=== PATIENT | female | born 1990 | race African-American/Black ===

== ENCOUNTER 2019-01-18 14:59 | Inpatient (IN) | payer OTHER ==
[2019-01-18 17:03] VITALS: BMI 29.1
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
[2019-01-18] MEDS ORDERED: P-EPHED 60MG/TRIPROLIDI 2.5MG TABLET PO PRN (20:26)
[2019-01-18] MEDS ORDERED: MAGNESIUM CITRATE 300 ML BOTTLE PO PRN (20:26)
[2019-01-18] MEDS ORDERED: LOPERAMIDE HCL 2 MG CAPSULE PO PRN (20:26)
[2019-01-18] MEDS ORDERED: MAG HYDROX/AL HYDROX/SIMETH 30 ML UNIT-DOSE CUP PO PRN (20:26)
[2019-01-18] MEDS ORDERED: ACETAMINOPHEN 325 MG TABLET (FP) PO PRN (20:26)
[2019-01-18] MEDS ORDERED: hydrOXYzine PAMOATE 50 MG CAPSULE (FP) PO PRN (20:26)
[2019-01-18] MEDS ORDERED: guaiFENesin/D-METHORPHAN HB 10 ML UNIT-DOSE CUPS PO PRN (20:26)
[2019-01-18] MEDS ORDERED: IBUPROFEN 400 MG TABLET (FP) PO PRN (20:26)
[2019-01-18] MEDS ORDERED: chlordiazePOXIDE HCL 25 MG CAPSULE PO PRN (20:26)
[2019-01-18] MEDS ORDERED: MAGNESIUM HYDROX 2400MG/30ML ORAL SUSPENSION 30 ML CUP PO PRN (20:26)
[2019-01-18] MEDS ORDERED: MENTHOL/PHENOL 1 EACH UD MM PRN (20:26)
[2019-01-18] MEDS: THIAMINE HCL 100 MG TABLET (FP) PO SCH (21:37)
[2019-01-18] MEDS: MELATONIN 5 MG TABLETS PO PRN (21:37)
[2019-01-18] MEDS: chlordiazePOXIDE HCL 25 MG CAPSULE PO SCH (22:01)
[2019-01-18 22:58] LABS: URINE APPEARANCE TURBID; URINE BILIRUBIN NEGATIVE (<2.0 mg/dL); URINE COLOR YELLOW; URINE GLUCOSE (UA) NEGATIVE (NEGATIVE); URINE KETONE 1+ (NEGATIVE); URINE LEUK ESTERASE TRACE (NEGATIVE); URINE NITRITE NEGATIVE (NEGATIVE); URINE PROTEIN 2+ (NEGATIVE); URINE UROBILINOGEN 4.0 E.U/dl mg/dL (0.2-1.0)
[2019-01-18 23:04] LABS: EPI CELLS FEW /HPF (FEW); URINE MUCUS RARE
[2019-01-19] MEDS: chlordiazePOXIDE HCL 25 MG CAPSULE PO SCH ×4 (06:56→22:26)
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
--- NOTE | 2019-01-19 10:03 | PN ---
S CIWA - CIWA Score Nausea/Vomitin-No Nausea/No Vomiting Muscle Tremors: 4-Moderate,w/Arms Extend Anxiety: 2 Agitation: 3 Paroxysmal Sweats: 3 Orientation: 0-Oriented Tacttile Disturbances: 0-None Auditory Disturbances: 0-None Visual Disturbances: 0-None Headache: 0-None Present CIWA-Ar Total Score: 12 S Progress Note (SOAP) Subjective: sweats shakes interrupted sleep body aches tired irritable Objective: 01/19/19 10:01 Vital Signs Temperature 98.2 F 01/19/19 09:36 Pulse Rate 62 01/19/19 09:36 Respiratory Rate 18 01/19/19 09:36 Blood Pressure 114/74 01/19/19 09:36 O2 Sat by Pulse Oximetry (%) Laboratory Tests 01/18/19 22:45 Urine Color Yellow Urine Appearance Turbid Urine pH 5.0 Ur Specific [place] 1.034 Urine Protein 2+ H Urine Glucose (UA) Negative Urine Ketones 1+ H Urine Blood 2+ H Urine Nitrite Negative Urine Bilirubin Negative Urine Urobilinogen 4.0 e.u/dl H Ur Leukocyte Esterase Trace Urine WBC (Auto) 27 Urine RBC (Auto) 2 Ur Epithelial Cells Few Urine Mucus Rare rest of labs pending aaox3 ambulating no acute distress repeat u/a Assessment: 01/19/19 10:02 withdrawal sx Plan: continue detox increase fluids labs pending repeat u/a
[2019-01-19 10:45] LABS: ALBUMIN 3.3 g/dl (3.4-5.0); ALK PHOS 87 U/L (45-117); ANION GAP 8 MMOL/L (8-16); BILIRUBIN,TOTAL 1.4 mg/dL (0.2-1); BLOOD UREA NITROGEN 11 mg/dL (7-18); CALCIUM 8.7 mg/dL (8.5-10.1); CHLORIDE 108 mmol/L (98-107); CO2 25 mmol/L (21-32); GLUCOSE,RANDOM 76 mg/dL (74-106); POTASSIUM 3.9 mmol/L (3.5-5.1); SGOT/AST 25 U/L (15-37); SGPT/ALT 30 U/L (13-61); SODIUM 140 mmol/L (136-145); TOT PROT 6.3 g/dl (6.4-8.2)
[2019-01-19 10:56] LABS: HEMATOCRIT 39.2 % (32.4-45.2); HEMOGLOBIN 13.3 GM/dL (10.7-15.3); MCH 32.5 pg (25.7-33.7); MEAN CELL VOLUME 95.6 fl (80-96); MEAN PLT VOLUME 9.2 fl (7.5-11.1); PLATELET COUNT 252 K/MM3 (134-434); RDW 14.5 % (11.6-15.6); WHITE BLOOD COUNT 3.5 K/mm3 (4.0-10.0)
[2019-01-19] MEDS: NICOTINE 14 MG/24 HOURS TOPICAL PATCH TD SCH (11:33)
[2019-01-19] MEDS: PRENATAL VITAMINS W/ FOLIC ACID TABLET (FP) PO SCH (11:33)
[2019-01-19] MEDS: risperiDONE 1 MG TABLET (FP) PO SCH ×2 (12:24→22:26)
[2019-01-19] MEDS: ESCITALOPRAM OXALATE 20 MG TABLET (FP) PO SCH (12:24)
--- NOTE | 2019-01-19 14:01 | EKG ---
Test Reason : Blood Pressure : / mmHG Vent. Rate : 072 BPM Atrial Rate : 072 BPM P-R Int : 188 ms QRS Dur : 080 ms QT Int : 410 ms P-R-T Axes : 028 070 049 degrees QTc Int : 448 ms NORMAL SINUS RHYTHM NORMAL ECG NO PREVIOUS ECGS AVAILABLE Confirmed by MD Nick, Ghassan ([id number]) on 01/19/2019 2:01:11 PM Referred By: Confirmed By:Ghassan Romero MD
[2019-01-19] MEDS: THIAMINE HCL 100 MG TABLET (FP) PO SCH (22:26)
[2019-01-20] MEDS: chlordiazePOXIDE HCL 25 MG CAPSULE PO SCH ×3 (07:24→17:37)
[2019-01-20] MEDS: NICOTINE POLACRILEX 2 MG GUM BC PRN ×2 (11:03→22:32)
[2019-01-20] MEDS: PRENATAL VITAMINS W/ FOLIC ACID TABLET (FP) PO SCH (11:03)
[2019-01-20] MEDS: NICOTINE 14 MG/24 HOURS TOPICAL PATCH TD SCH (11:03)
[2019-01-20] MEDS: risperiDONE 1 MG TABLET (FP) PO SCH ×2 (11:03→22:12)
[2019-01-20] MEDS: ESCITALOPRAM OXALATE 20 MG TABLET (FP) PO SCH (11:03)
--- NOTE | 2019-01-20 13:29 | PN ---
[facility] CIWA - CIWA Score Nausea/Vomitin-No Nausea/No Vomiting Muscle Tremors: 3 Anxiety: 2 Agitation: 2 Paroxysmal Sweats: 3 Orientation: 0-Oriented Tacttile Disturbances: 0-None Auditory Disturbances: 0-None Visual Disturbances: 0-None Headache: 0-None Present CIWA-Ar Total Score: 10 S Progress Note (SOAP) Subjective: irritable sweats tired Objective: 01/20/19 13:32 Vital Signs Temperature 98.1 F 01/20/19 09:31 Pulse Rate 65 01/20/19 09:31 Respiratory Rate 20 01/20/19 09:31 Blood Pressure 116/75 01/20/19 09:31 O2 Sat by Pulse Oximetry (%) Laboratory Tests 01/18/19 01/19/19 01/19/19 22:45 07:00 07:00 WBC 3.5 L RBC 4.10 Hgb 13.3 Hct 39.2 MCV 95.6 MCH 32.5 MCHC 34.0 RDW 14.5 Plt Count 252 MPV 9.2 Sodium Potassium Chloride Carbon Dioxide Anion Gap BUN Creatinine Creat Clearance w eGFR Random Glucose Calcium Total Bilirubin AST ALT Alkaline Phosphatase Total Protein Albumin Urine Color Yellow Urine Appearance Turbid Urine pH 5.0 Ur Specific [place] 1.034 Urine Protein 2+ H Urine Glucose (UA) Negative Urine Ketones 1+ H Urine Blood 2+ H Urine Nitrite Negative Urine Bilirubin Negative Urine Urobilinogen 4.0 e.u/dl H Ur Leukocyte Esterase Trace Urine WBC (Auto) 27 Urine RBC (Auto) 2 Ur Epithelial Cells Few Urine Mucus Rare RPR Titer HIV 1&2 Antibody Screen Negative HIV P24 Antigen Negative 01/19/19 01/19/19 07:00 07:00 WBC RBC Hgb Hct MCV MCH MCHC RDW Plt Count MPV Sodium 140 Potassium 3.9 Chloride 108 H Carbon Dioxide 25 Anion Gap 8 BUN 11 Creatinine 1.0 Creat Clearance w eGFR > 60 Random Glucose 76 Calcium 8.7 Total Bilirubin 1.4 H AST 25 ALT 30 Alkaline Phosphatase 87 Total Protein 6.3 L Albumin 3.3 L Urine Color Urine Appearance Urine pH Ur Specific [place] Urine Protein Urine Glucose (UA) Urine Ketones Urine Blood Urine Nitrite Urine Bilirubin Urine Urobilinogen Ur Leukocyte Esterase Urine WBC (Auto) Urine RBC (Auto) Ur Epithelial Cells Urine Mucus RPR Titer Nonreactive HIV 1&2 Antibody Screen HIV P24 Antigen repeated u/a pending aaox3 ambulating no acute distress Assessment: 01/20/19 13:33 withdrawal sx Plan: continue detox increase fluids labs pending
[2019-01-20 15:26] LABS: URINE APPEARANCE CLOUDY; URINE BILIRUBIN NEGATIVE (<2.0 mg/dL); URINE COLOR YELLOW; URINE GLUCOSE (UA) NEGATIVE (NEGATIVE); URINE KETONE NEGATIVE (NEGATIVE); URINE LEUK ESTERASE 3+ (NEGATIVE); URINE NITRITE NEGATIVE (NEGATIVE); URINE PROTEIN NEGATIVE (NEGATIVE); URINE UROBILINOGEN NEGATIVE mg/dL (0.2-1.0)
[2019-01-20 15:30] LABS: EPI CELLS MODERATE /HPF (FEW); URINE MUCUS FEW; YEAST RARE
[2019-01-20] MEDS: THIAMINE HCL 100 MG TABLET (FP) PO SCH (22:11)
[2019-01-20] MEDS: chlordiazePOXIDE 5 MG CAPSULE PO SCH (22:11)
[2019-01-20] MEDS: MELATONIN 5 MG TABLETS PO PRN (22:11)
[2019-01-21] MEDS: chlordiazePOXIDE 5 MG CAPSULE PO SCH ×2 (07:19→11:00)
[2019-01-21 10:11] VITALS: BP 121/68; PULSE 72; TEMP 98.1
--- NOTE | 2019-01-21 10:32 | PN ---
S Progress Note Note: pt is refusing to continue to take her detox medication pt is not having any s/ s of withdrawals. d/c today.
--- NOTE | 2019-01-21 10:37 | DS ---
[facility] Detox Discharge Summary Admission Date: 01/18/19 Discharge Date: 01/21/19 - History Present History: Alcohol Dependence, Cocaine Dependence - Physical Exam Results Vital Signs: Vital Signs Temperature 98.1 F 01/21/19 10:00 Pulse Rate 72 01/21/19 10:00 Respiratory Rate 16 01/21/19 10:00 Blood Pressure 121/68 01/21/19 10:00 O2 Sat by Pulse Oximetry (%) - Treatment Hospital Course: Detox Protocol Followed, Detoxed Safely, Responded well, Discharged Condition Good, Rehab Referral Accepted - Medication Discharge Medications: Ambulatory Orders Escitalopram Oxalate [Lexapro -] 20 mg PO DAILY 01/18/19 Risperidone [Risperdal] 1 mg PO BID 01/18/19 - AMA Did Patient Leave Against Medical Advice: No (going home)
[2019-01-21] MEDS: risperiDONE 1 MG TABLET (FP) PO SCH (11:00)
[2019-01-21] MEDS: PRENATAL VITAMINS W/ FOLIC ACID TABLET (FP) PO SCH (11:00)
[2019-01-21] MEDS: NICOTINE 14 MG/24 HOURS TOPICAL PATCH TD SCH (11:00)
[2019-01-21] MEDS: ESCITALOPRAM OXALATE 20 MG TABLET (FP) PO SCH (11:00)
[2019-01-21] MEDS ORDERED: chlordiazePOXIDE HCL 10 MG CAPSULE PO SCH (23:00)
== END 2019-01-21 10:46 | disposition home or self-care (01) | DRG 774 ==
LOC: YASAS 14:59 → Y6N 20:58
PROVIDERS: ADMIT Surgery; ATTEND Surgery
PROC: HZ2ZZZZ Detoxification Services for Substance Abuse Treatment (ICD-10-PCS; principal; 2019-01-18)
DX: F10.230 Alcohol dependence with withdrawal, uncomplicated (principal); F14.20 Cocaine dependence, uncomplicated; F17.210 Nicotine dependence, cigarettes, uncomplicated; F25.9 Schizoaffective disorder, unspecified; F19.24 Other psychoactive substance dependence with psychoactive substance-induced mood disorder; F19.282 Other psychoactive substance dependence with psychoactive substance-induced sleep disorder; F31.9 Bipolar disorder, unspecified; F43.10 Post-traumatic stress disorder, unspecified; D25.9 Leiomyoma of uterus, unspecified; Z20.2 Contact with and (suspected) exposure to infections with a predominantly sexual mode of transmission; Z91.5 Personal history of self-harm
CPT/HCPCS: 36415; 80053; 81003; 81015; 85027; 86593; 87389; 93005; 93010; J2794